=== PATIENT | female | born 2000 | race Caucasian/White ===

== ENCOUNTER 2018-01-17 22:17 | Emergency (ER) | payer OTHER ==
[~2018-01-17] VITALS: Ht 162.6 cm; Wt 49.5 kg
[2018-01-17 22:20] VITALS: BP 119/75
[2018-01-17] MEDS ORDERED: ACETAMINOPHEN 325 MG TABLET ONE (23:10)
[2018-01-17] MEDS ORDERED: ACETAMINOPHEN 325 MG TABLET PO ONE (23:30)
== END 2018-01-18 00:23 | disposition home or self-care (01) ==
LOC: ED 01-18 00:17
DX: S16.1XXA Strain of muscle, fascia and tendon at neck level, initial encounter (principal); S19.9XXA Unspecified injury of neck, initial encounter; S49.92XA Unspecified injury of left shoulder and upper arm, initial encounter; V49.49XA Driver injured in collision with other motor vehicles in traffic accident, initial encounter; Y93.89 Activity, other specified; Y99.8 Other external cause status; Y92.410 Unspecified street and highway as the place of occurrence of the external cause
CPT/HCPCS: 72125; 99284